=== PATIENT | female | born 1990 | race Caucasian/White ===

== ENCOUNTER 2016-11-16 16:28 | Inpatient (IN) ==
[2016-11-16] MEDS ORDERED: MEPERIDINE 50 MG/1 ML VIAL IV PRN (16:38)
[2016-11-16] MEDS ORDERED: ONDANSETRON 4 MG/2 ML VIAL IV PRN ×2 (16:38→22:52)
[2016-11-16] MEDS ORDERED: ePHEDrine 50 MG/ML AMP IV PRN (16:40)
[2016-11-16] MEDS ORDERED: fentaNYL 2 MCG/ROPIV 0.2% EPID 150 ML EPIDURAL SCH (16:40)
[2016-11-16] MEDS ORDERED: diphenhydrAMINE 50 MG/1 ML VIAL IV PRN (16:40)
[2016-11-16] MEDS ORDERED: CITRIC ACID/SODIUM CITRATE 30 ML UDCUP PO ONE (16:40)
[2016-11-16] MEDS ORDERED: hydrOXYzine HCL 25 MG/1 ML VIAL IM PRN (16:40)
[2016-11-16] MEDS ORDERED: FAMOTIDINE 20 MG/2 ML VIAL IV ONE (16:40)
[2016-11-16] MEDS ORDERED: BUTORPHANOL 1 MG/ML VIAL ONE (16:45)
[2016-11-16] MEDS ORDERED: OXYTOCIN/LR 20 UNIT/1,000 ML BAG IV SCH (17:00)
[2016-11-16 17:23] LABS: Hematocrit 36.4 VOL% (35.7-47.0); Hemoglobin 12.2 GM/DL (12.0-16.0); Immature Granulocytes % 0.6 %; Immature Granulocytes Absolute 0.13 #; Lymphocytes # 1.1 10*3/uL (1.4-4.0); Lymphocytes % 5.3 % (21.3-54.2); Mean Corpuscular HGB Conc 33.5 GM/DL (32-36); Mean Corpuscular Hemoglobin 29 PG (27-34); Mean Corpuscular Volume 85.4 FL (87-102); Monocytes # 0.4 10*3/uL (0.11-0.8); Monocytes % 1.8 % (1.7-12.7); Neutrophils # 19.2 10*3/uL (1.4-7.4); Neutrophils % 92.3 % (38.7-73.9); Platelet Count 224 T/CUMM (130-400); Red Blood Count 4.26 MC/CUMM (3.8-5.5); Red Cell Distribution Width 14.7 % (9.3-17.3); White Blood Count 20.8 T/CUMM (4-12)
[2016-11-16] MEDS: LACTATED RINGERS 1,000 ML IV SCH ×3 (17:38→21:44)
[2016-11-16 17:52] LABS: Bilirubin,Total 0.7 MG/DL (0.2-1.0); Calcium 8.7 MG/DL (8.5-10.1); Osmolality,Calculated 276.4 MOS/KG (273-304); Potassium 3.9 MMOL/L (3.5-5.1); Total Protein 6.8 G/DL (6.4-8.3)
[2016-11-16] MEDS ORDERED: BUTORPHANOL 1 MG/ML VIAL IV ONE (18:50)
[2016-11-16 20:56] LABS: Lymphocytes 6 % (20-55); Platelet Estimate Normal; Segmented Neutrophils 93 % (50-85); Total Cells Counted 100
[2016-11-16] MEDS ORDERED: miSOPROStol 200 MCG TABLET ONE (21:57)
[2016-11-16] MEDS ORDERED: LIDOCAINE 1% 50 ML VIAL ONE (21:57)
[2016-11-16 22:45] LABS: Cord Arterial Blood HCO3 21.3 MMOL/L
[2016-11-16 22:46] LABS: Cord Venous Blood HCO3 25.2 MMOL/L; Cord Venous Blood PCO2 43.6 MMHG
--- NOTE | 2016-11-16 22:47 | OB/GYN History & Physical ---
History of Present Illness Chief complaint: active labor, positive drug screen History of present illness: Ms. Alan is a 26 year old female 1 para 0 EDC is 12/02/2016, admitted at 4+ centimeters dilated in active labor. Patient ibeth every 2-3 minutes apart. She was here earlier during the day whereupon a tooth placed on the monitor cervix is 1 cm. Positive drug screen was noted for benzos and THC. She was hydrated received antibiotics and was discharged. She returned back later on during the night and was in full blown labor 4+ centimeters dilated 80% -2 station. Heart tones were category 1 throughout her labor. Home Medications Medication Instructions Recorded Confirmed Type No Known Home Medications [No 11/16/16 11/16/16 History Known Home Medications] Allergies Allergy/AdvReac Type Severity Reaction Status Date / Time No Known Allergies Allergy Verified 11/16/16 07:53 Medical,Surgical,& Family Hx - Medical History Reproductive: History of: Complication (CERCLAGE ABX 1), Reproductive Problems - Surgical History Thoracic Surgeries: Patient denies;: Organ Transplant, Lobectomy Neurologic Surgeries: Patient denies: Neurologic Surgery Reproductive Surgeries: Surgical HX of;: Gynecologic Surgery (CERCLAGE) - Family History Family History: Reports;: Family Hypertension (PARENTS) Denies;: Family Anesthesia Reaction, Family Cancer, Family Diabetes, Family Heart Disease, Family Hematology, Family Psychiatric Problems, Family Stroke, Additional Family History - Social History 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 - Constitutional Vitals: Vital Signs Temp Pulse Resp BP 11/16/16 20:00 97.4 F L 89 18 118/79 General appearance: mild distress - Antepartum / Post Antepartum Exam Cervix -Dilatation: 4+ centimeters 80% -2 station - Head Head exam: Present: normal inspection - Eye Eye exam: Present: EOMI Pupils: Present: ANALIA - ENT ENT exam: Present: normal exam - Neck Neck exam: Present: normal inspection - Respiratory Respiratory exam: Present: clear to auscultation bilaterally - Breast Breasts: as per HPI Menstruation: as per HPI - Cardiovascular Cardiovascular exam: Present: regular rate and rhythm - GI/Abdominal GI/Abdominal exam: Present: normal bowel sounds - Extremities Exam Extremities exam: Present: normal inspection - Back Exam Back exam: Present: normal inspection - Neurological Exam Neurological exam: Present: alert, oriented X3 - Psychiatric Psychiatric exam: Present: normal affect, agitated, anxious - Skin Skin exam: Present: normal color Assessment and Plan (1) Active labor Status: Acute Assessment and plan: Anticipate , positive drug screen, risks were thoroughly discussed with this patient regarding the use of illegal drugs during her . Current Visit: Yes Results - Labs CBC & BMP: 11/16/16 17:08 11/16/16 17:08
--- NOTE | 2016-11-16 22:51 | Event Note ---
Stage I of labor Admitted for placenta meters dilated External monitor Epidural anesthetic IV fluids IV Pitocin Spontaneous rupture membranes at approximately 7-8 cm dilated, thick meconium stain. Stage II Vacuum extraction with an LML episiotomy. One application of a vacuum at approximately +2 station, BÁRBARA position No nuchal cord was noted Once head was delivered was suctioned vigorously with wall suction the nares as well as the oral cavity. Once the full body was delivered was suctioned again with wall suction the oral cavity as well as in the ears Cord was clamped and cut Cord gas, cord blood was obtained Stage III Placenta was delivered sent to lab for further evaluation Episiotomy was repaired with #2-0 Vicryl and 3-0 chromic [place] [facility] was present at the time of delivery wall suction and also warming of the infant weight was 6 lbs. 5 oz. of the infant was at 2233 Delivery of the placenta was at 2236 p.m. mother and stable
[2016-11-16] MEDS ORDERED: MEASLES/MUMPS/RUBELLA VACCINE 0.5 ML VIAL SUBCUT ONE (22:52)
[2016-11-16] MEDS ORDERED: OXYTOCIN/LR 20 UNIT/1,000 ML BAG IV ONE (22:52)
[2016-11-16] MEDS ORDERED: LANOLIN 50% CREAM 0.3 OZ TUBE TOP PRN (22:52)
[2016-11-16] MEDS ORDERED: BENZOCAINE 20%/MENTHOL 0.5% SPRAY 56 GM CAN TOP PRN (22:52)
[2016-11-16] MEDS ORDERED: WITCH HAZEL PADS 100/JAR TOP PRN (22:52)
[2016-11-16] MEDS ORDERED: BISACODYL 10 MG SUPP RECTAL PRN (22:52)
[2016-11-16] MEDS ORDERED: oxyCODONE/ACETAMINOPHEN 5-325 MG TABLET PO PRN (22:52)
[2016-11-16] MEDS ORDERED: DIPH/TET/ACEL PERT BOOSTER VACCINE 0.5 ML VIAL IM ONE (22:52)
[2016-11-16] MEDS ORDERED: ACETAMINOPHEN 325 MG TABLET PO PRN (22:52)
[2016-11-16] MEDS ORDERED: RHO(D) IMMUNE GLOBULIN 300 MCG SYRINGE IM ONE (22:52)
[2016-11-16] MEDS ORDERED: HYDROCORTISONE 2.5% RECTAL CREAM 30 GM TUBE TOP PRN (22:52)
[2016-11-17 06:15] LABS: Basophils % 0.1 % (0.0-0.8); Eosinophils % 0.1 % (0.00-10.9); Hematocrit 29.9 VOL% (35.7-47.0); Immature Granulocytes % 0.5 %; Lymphocytes # 2.4 10*3/uL (1.4-4.0); Lymphocytes % 12.8 % (21.3-54.2); Mean Corpuscular HGB Conc 32.8 GM/DL (32-36); Mean Corpuscular Hemoglobin 28 PG (27-34); Mean Corpuscular Volume 86.7 FL (87-102); Mean Platelet Volume 11.4 FL (9.6-12.0); Monocytes # 1.3 10*3/uL (0.11-0.8); Monocytes % 6.7 % (1.7-12.7); Neutrophils # 15.1 10*3/uL (1.4-7.4); Neutrophils % 79.8 % (38.7-73.9); Platelet Count 183 T/CUMM (130-400); Red Blood Count 3.45 MC/CUMM (3.8-5.5); Red Cell Distribution Width 14.5 % (9.3-17.3); White Blood Count 18.9 T/CUMM (4-12)
[2016-11-17 06:25] LABS: Hemoglobin 9.8 GM/DL (12.0-16.0)
[2016-11-17] MEDS: IBUPROFEN 800 MG TABLET PO PRN ×3 (08:16→20:05)
[2016-11-17] MEDS: oxyCODONE/ACETAMINOPHEN 5-325 MG TABLET PO PRN ×3 (08:17→20:05)
--- NOTE | 2016-11-17 09:17 | Anesthesia ---
Anesthesia Post OP - Post Ansesthetic Evaluation Patient seen in post op: Yes Resp: within normal limits CV: within normal limits Mental: within normal limits Temp: within normal limits [id number]: within normal limits Nausea and Vomiting: within normal limits Pain: within normal limits
[2016-11-17] MEDS: DOCUSATE SODIUM 100 MG CAPSULE PO SCH ×2 (09:30→20:05)
--- NOTE | 2016-11-17 11:33 | OB/GYN Progress Note ---
Assessment and Plan (1) Active labor Status: Acute Current Visit: Yes (2) Vaginal delivery Status: Acute Assessment and plan: initiate routine orders. Current Visit: Yes PLATE FORMER - PN: Subj Interval history: Stable with no complaints. Exam PLATE FORMER - Constitutional Vitals: Vital Signs Temp Pulse Resp BP Pulse Ox 11/17/16 10:00 20 11/17/16 07:30 98.3 F 83 18 124/69 98 11/17/16 06:00 18 11/17/16 04:00 97.6 F 103 H 18 131/68 98 11/17/16 03:00 95 H 20 132/86 11/17/16 02:00 90 20 136/85 11/17/16 01:00 99 H 20 130/86 11/17/16 00:30 83 20 128/90 11/17/16 00:00 97.9 F 88 20 141/76 97 11/16/16 20:00 97.4 F L 89 18 118/79 General appearance: no acute distress - Antepartum / Post Post Exam Breast: bilateral: normal Abdomen obstetrics: Present: bowel sounds normal Vagina: Present: normal moisture, discharge (light lochia rubra) Uterus exam: Present: enlarged Anus/Rectum: Present: normal perianal skin - Head Head exam: Present: normal inspection - Respiratory Respiratory exam: Present: clear to auscultation bilaterally - Cardiovascular Cardiovascular exam: Present: regular rate and rhythm - GI/Abdominal GI/Abdominal exam: Present: normal bowel sounds, soft - Neurological Exam Neurological exam: Present: alert, oriented X3 - Psychiatric Psychiatric exam: Present: normal affect, normal mood - Skin Skin exam: Present: normal color, warm Results - Labs CBC & BMP: 11/17/16 05:56 11/16/16 17:08
[2016-11-18] MEDS: oxyCODONE/ACETAMINOPHEN 5-325 MG TABLET PO PRN ×4 (02:28→23:57)
[2016-11-18] MEDS: IBUPROFEN 800 MG TABLET PO PRN ×3 (02:28→18:19)
[2016-11-18] MEDS: SIMETHICONE CHEW 80 MG TABLET PO PRN ×2 (02:33→12:52)
[2016-11-18] MEDS: DOCUSATE SODIUM 100 MG CAPSULE PO SCH ×2 (09:26→20:19)
[2016-11-18] MEDS ORDERED: ALUMINUM/MAGNES/SIMETH MAX STR 30 ML UDCUP PO PRN (14:54)
[2016-11-19] MEDS: SIMETHICONE CHEW 80 MG TABLET PO PRN (08:48)
[2016-11-19] MEDS: DOCUSATE SODIUM 100 MG CAPSULE PO SCH ×2 (08:48→22:17)
[2016-11-19] MEDS: oxyCODONE/ACETAMINOPHEN 5-325 MG TABLET PO PRN ×2 (09:30→15:12)
[2016-11-19 14:05] VITALS: BP 132/78
--- NOTE | 2016-11-20 12:42 | Pathology Report from [facility] ---
ACCESSION # : [id number] PATIENT NAME : Jf Lara ORDERING DR : SKYE ROGERS MD CLINICAL HX: IUP @ 37.5 wks gestation, thick meconium stained fluid, HX of drug abuse POST-OP DX: Same SPECIMEN INFO: Placenta GROSS DESCRIPTION: Received fresh labeled "JF LARA & PLACENTA" is a 434 gm placenta measuring 20.0 x 13.0 x 2.8 cm. The membranes are translucent with heavy meconium staining noted. The umbilical cord measures 13.5 cm, contains three vessels and is eccentrically inserted. The surface is blue crandall and intact. The maternal surface displays mildly disrupted hemorrhagic cotyledons with no abnormalities grossly appreciated upon sectioning. Sections submitted A- membranes and cord, B- and maternal surfaces. DIAGNOSIS FOR JF LARA: PLACENTA, MEMBRANES, UMBILICAL CORD: Focal placental infarction with dystrophic calcification, mild intervillous blood. Tri -vessel umbilical cord, eccentrically inserted. Membranes with focal chronic inflammation and attached blood. SERVICE DATE: 11/17/2016 REPORT DATE: 11/20/2016 PATHOLOGIST: Luís Silva
--- NOTE | 2016-11-24 17:35 | Physician Query Form ---
CLICK EDIT DOCUMENT TO SELECT QUERY ANSWER --> OK --> SIGN Lauren Arriaza RN Clinical Nurse'S Assistant W) [phone] (f) [phone] [email or web address] PROVIDERS: Make your selection(s) from the choices in EACH section by typing an "x" and enter comments in the comment section. Please use your independent medical judgment in providing your response. This request does not imply that any particular answer is desired or expected. CLINICAL INDICATORS: (Providers should not edit this section) Based on documentation of "Vacuum extraction with an LML episiotomy" Please clarify the reason for vacuum assisted delivery. Based on the above, could you clarify the appropriate diagnosis, if significant , that supports the above abnormalities and additional evaluation, monitoring, and/or treatment rendered: ( ) distress ( ) Maternal exhaustion ( ) Labor complications ( ) Attempted or failed delivery ( ) Other, please specify: ( ) Clinically unable to determine COMMENTS: Use of terms such as suspected, likely, or probable (associated with a specific diagnosis that is being evaluated, monitored, or treated as if it exists) are acceptable and can be restated in the discharge summary if not ruled out. [facility]
--- NOTE | 2016-11-27 15:41 | Physician Query Form ---
CLICK EDIT DOCUMENT TO SELECT QUERY ANSWER --> OK --> SIGN Lauren Arriaza RN Clinical Shingle Weaver W) [phone] (f) [phone] [email or web address] PROVIDERS: Make your selection(s) from the choices in EACH section by typing an "x" and enter comments in the comment section. Please use your independent medical judgment in providing your response. This request does not imply that any particular answer is desired or expected. CLINICAL INDICATORS: (Providers should not edit this section) Based on documentation of "Vacuum extraction with an LML episiotomy" Please clarify the reason for vacuum assisted delivery. Based on the above, could you clarify the appropriate diagnosis, if significant , that supports the above abnormalities and additional evaluation, monitoring, and/or treatment rendered: ( ) distress ( ) Maternal exhaustion ( ) Labor complications ( ) Attempted or failed delivery ( ) Other, please specify: ( ) Clinically unable to determine COMMENTS: Use of terms such as suspected, likely, or probable (associated with a specific diagnosis that is being evaluated, monitored, or treated as if it exists) are acceptable and can be restated in the discharge summary if not ruled out. [facility]
--- NOTE | 2017-02-05 07:32 | Discharge Summary ---
DATE OF ADMISSION: 11/16/2016 DATE OF DISCHARGE: 11/18/2016 She was in active labor at 4 cm dilated. Her drug screen was positive for benzo and also marijuana. She subsequently progressed in labor and delivered a viable infant with the assistance of a vacuum. The patient was uncooperative with the additional illegal drugs on board so in order to assist her with the delivery because of her inability to push, we delivered this infant without any complications. Female infant, 6 pound, 5 ounces. Apgars were 9 and 9. She remained in the hospital for two postoperative days. This was discussed with this patient about the nature of the positive drug screen and the fact that mental health social worker would be discussing with her this finding. She thoroughly understood. Her postoperative course was unremarkable and she was discharged and will return to office in six weeks. PIERO
== END 2016-11-19 22:00 | disposition home or self-care (01) | DRG 775 ==
LOC: N.LDOUT 16:28 → N.LD 16:30 → N.OB 23:56
PROVIDERS: ADMIT Obstetrics & Gynecology; ATTEND Obstetrics & Gynecology